=== PATIENT | female | born 1995 | race Caucasian/White ===

== ENCOUNTER 2021-11-05 19:00 | Inpatient (IN) | payer BC ==
[2021-11-06] MEDS ORDERED: Bupivacaine 0.25% HCL 30 ML VIAL ONE (08:00)
[2021-11-06] MEDS ORDERED: Bupivacaine/Epinephrine 0.25% 30 ML VIAL ONE (08:00)
[2021-11-06] MEDS ORDERED: Diphenoxylate HCl/Atropine Tablet PO PRN ×2 (09:18)
[2021-11-06] MEDS ORDERED: HYDROcodone/Acetaminophen 5/325 mg Tablet PO PRN ×2 (09:18)
[2021-11-06] MEDS ORDERED: Docusate 100 MG CAP PO PRN (09:18)
[2021-11-06] MEDS ORDERED: Promethazine HCl 25 MG/ML VIAL IM PRN ×2 (09:18→22:22)
[2021-11-06] MEDS ORDERED: hydrALAZINE 20 MG/ML VIAL SLOW IVP PRN (09:18)
[2021-11-06] MEDS ORDERED: Butorphanol Tartrate 1 MG/ML VIAL SLOW IVP PRN (09:18)
[2021-11-06] MEDS ORDERED: Misoprostol 200 MCG TAB PR PRN (09:18)
[2021-11-06] MEDS ORDERED: Ondansetron PF 4 MG/2 ML Vial IVP PRN ×2 (09:18→22:22)
[2021-11-06] MEDS ORDERED: Ibuprofen 800 MG TAB PO PRN (09:18)
[2021-11-06] MEDS ORDERED: NS w/ Oxytocin 30 units 500 ML IV SCH ×2 (09:18)
[2021-11-06] MEDS ORDERED: Zolpidem Tartrate 5 MG TAB PO PRN (09:18)
[2021-11-06] MEDS ORDERED: Lidocaine 1% (PF) 30 ML VIAL SC PRN (09:18)
[2021-11-06] MEDS ORDERED: Acetaminophen 500 MG TAB PO PRN (09:18)
[2021-11-06] MEDS: Lactated Ringer's 1,000 ML IV SCH (09:30)
[2021-11-06 09:53] VITALS: BMI 37.9
[2021-11-06 09:57] LABS: Hemoglobin 9.8 g/dL (12.0-15.5); Mean Corpuscular HGB CONC 32.7 g/dL (32.0-36.0); Mean Corpuscular Hemoglobin 24.7 pg (27.0-33.0); Mean Corpuscular Volume 75.6 fl (81.6-98.3); Mean Platelet Volume 12.5 fl (7.4-10.4); Platelet Count 216 10x3/uL (150-450); RBC Distribution Width 14.2 % (11.5-14.5); Red Blood Cell (RBC) Count 3.97 10x6/uL (3.90-5.03); White Blood Cell (WBC) Count 9.9 10x3/uL (3.5-10.5)
[2021-11-06] MEDS: Misoprostol 100 MCG TAB VAG SCH (10:17)
[2021-11-06 10:25] LABS: HIV (1/2) Antibody/Antigen Non-Reactive (NonReactive); HIV 1/2 INDEX 0.08 S/CO (<1.00); Hep B Surf Ag Non-Reactive S/CO (NonReactive); Syphilis Antibody Nonreactive (Nonreactive); Syphilis Antibody Index 0.02 S/CO (<1.00 Non-Reactive)
[2021-11-06 10:33] LABS: HBSAg Index 0.16 S/CO (0-0.99)
[2021-11-06] MEDS ORDERED: Fentanyl 2 mcg/Bup 0.1% Cadd 100 ML ONE (21:14)
[2021-11-06] MEDS ORDERED: Naloxone HCl 0.4 mg/ml Vial IVP PRN ×2 (22:22)
[2021-11-06] MEDS ORDERED: Moisturizing Cream (Eucerin) 113 GM JAR TOP PRN (22:22)
[2021-11-06] MEDS ORDERED: ePHEDrine Sulfate 50 MG/10 ML VIAL SLOW IVP PRN (22:22)
[2021-11-06] MEDS ORDERED: diphenhydrAMINE 50 MG/ML VIAL IVP PRN (22:22)
[2021-11-06] MEDS ORDERED: Acetaminophen 325 MG TAB PO PRN (22:22)
[2021-11-06] MEDS ORDERED: Lactated Ringer's 500 ML IV PRN (22:22)
[2021-11-06] MEDS ORDERED: Fentanyl 2 mcg/Bupivacaine 0.1% Cassette 100 ML EPIDURAL SCH (22:30)
[2021-11-06] MEDS ORDERED: Communication Order-Pharmacy FS SCH (22:30)
[2021-11-07] MEDS ORDERED: Bisacodyl 10 MG SUPP PR PRN (07:57)
[2021-11-07] MEDS ORDERED: diphenhydrAMINE 25 MG CAP PO PRN (07:57)
[2021-11-07] MEDS ORDERED: HYDROcodone/Acetaminophen 5/325 mg Tablet PO PRN ×2 (07:57)
[2021-11-07] MEDS ORDERED: Zolpidem Tartrate 5 MG TAB PO PRN (07:57)
[2021-11-07] MEDS ORDERED: Misoprostol 200 MCG TAB VAG PRN (07:57)
[2021-11-07] MEDS ORDERED: hydrALAZINE 20 MG/ML VIAL SLOW IVP PRN (07:57)
[2021-11-07] MEDS ORDERED: Milk Of Magnesia 30 ML UDCUP PO PRN (07:57)
[2021-11-07] MEDS ORDERED: Benzocaine-Menthol 82.5 ML CAN TOP PRN (07:57)
[2021-11-07] MEDS ORDERED: Lanolin Ointment 7 GM TUBE TOP PRN (07:57)
[2021-11-07] MEDS ORDERED: Preparation H Ointment 28 GM TUBE PR PRN (07:57)
[2021-11-07] MEDS ORDERED: Ondansetron PF 4 MG/2 ML Vial IVP PRN (07:57)
[2021-11-07] MEDS ORDERED: NS w/ Oxytocin 30 units 500 ML IV SCH (08:00)
[2021-11-07] MEDS: Docusate 100 MG CAP PO SCH ×2 (12:10→21:29)
[2021-11-07] MEDS: Ferrous Sulfate 325 MG TAB PO SCH ×2 (12:10→18:14)
[2021-11-07] MEDS: Prenatal Vitamin 1 TAB PO SCH (12:10)
[2021-11-07] MEDS: Ibuprofen 800 MG TAB PO SCH ×2 (15:15→21:28)
[2021-11-08] MEDS: Ibuprofen 800 MG TAB PO SCH ×2 (05:27→13:55)
[2021-11-08 05:40] LABS: Hemoglobin 8.1 g/dL (12.0-15.5); Mean Corpuscular HGB CONC 32.4 g/dL (32.0-36.0); Mean Corpuscular Hemoglobin 24.5 pg (27.0-33.0); Mean Corpuscular Volume 75.5 fl (81.6-98.3); Mean Platelet Volume 12.7 fl (7.4-10.4); Platelet Count 174 10x3/uL (150-450); RBC Distribution Width 14.3 % (11.5-14.5); Red Blood Cell (RBC) Count 3.31 10x6/uL (3.90-5.03); White Blood Cell (WBC) Count 13.3 10x3/uL (3.5-10.5)
[2021-11-08] MEDS: Lactated Ringer's 1,000 ML IV SCH ×2 (05:56→07:45)
[2021-11-08] MEDS: Misoprostol 100 MCG TAB VAG SCH ×2 (05:56→07:45)
[2021-11-08] MEDS ORDERED: Boostrix 0.5 ML (Tdap) VIAL IM ONE (07:57)
[2021-11-08 08:06] VITALS: BP 128/68; TEMP 98.6
[2021-11-08] MEDS: Docusate 100 MG CAP PO SCH (08:23)
[2021-11-08] MEDS: Prenatal Vitamin 1 TAB PO SCH (08:23)
[2021-11-08] MEDS: Ferrous Sulfate 325 MG TAB PO SCH (08:23)
== END 2021-11-08 14:15 | disposition home or self-care (01) | DRG 806 ==
LOC: CSHLD 11-06 08:57 → CSHPP 11-07 10:25
PROVIDERS: ADMIT Obstetrics & Gynecology; ATTEND Obstetrics & Gynecology
PROC: 10E0XZZ Delivery of Products of Conception, External Approach (ICD-10-PCS; principal; 2021-11-07)
PROC: 0KQM0ZZ Repair Perineum Muscle, Open Approach (ICD-10-PCS; 2021-11-07)
PROC: 3E0P7VZ Introduction of Hormone into Female Reproductive, Via Natural or Artificial Opening (ICD-10-PCS; 2021-11-07)
DX: O99.02 Anemia complicating childbirth (principal); O99.354 Diseases of the nervous system complicating childbirth; Z37.0 Single live birth; Z88.1 Allergy status to other antibiotic agents; Z3A.39 39 weeks gestation of pregnancy; Z86.16 Personal history of COVID-19; D64.9 Anemia, unspecified; G43.909 Migraine, unspecified, not intractable, without status migrainosus; Z79.899 Other long term (current) drug therapy; Z79.82 Long term (current) use of aspirin; O42.02 Full-term premature rupture of membranes, onset of labor within 24 hours of rupture; O70.1 Second degree perineal laceration during delivery
CPT/HCPCS: 36415; 51702; 85027; 86780; 86850; 86900; 86901; 87340; 87389; J2001; J2405; J2590; J7120; S0020